=== PATIENT | female | born 1965 | race Caucasian/White ===

== ENCOUNTER 2017-08-10 14:39 | Emergency (ER) | payer OTHER ==
[2017-08-10 15:04] VITALS: BP 134/78; PULSE 73; TEMP 98.3; BMI 21.9
--- NOTE | 2017-08-10 15:06 | PDOC ---
Rapid Medical Evaluation Chief Complaint: Sore Throat Medical Evaluation: 08/10/17 15:01 The patient presents with a chief complaint of: Sore throat x2 days, subjective fevers I have performed a brief in-person evaluation of this patient; Pertinent physical exam findings: posterior oropharynx erythma, no LAD I have ordered the following: rapid strep The patient will proceed to the ED for further evaluation.
--- NOTE | 2017-08-10 16:37 | PDOC ---
History of Present Illness - General Chief Complaint: Sore Throat Stated Complaint: SORE THROAT Time Seen by Provider: 08/10/17 15:06 History Source: Patient Exam Limitations: No Limitations - History of Present Illness Initial Comments: 08/10/17 16:32 c/o sore throat hoarse voice and phlegm in back of throat for one month no fever or chills. no vomiting Past History - Past Medical History Allergies/Adverse Reactions: Allergies Allergy/AdvReac Type Severity Reaction Status Date / Time No Known Allergies Allergy Verified 08/10/17 15:04 Home Medications: Ambulatory Orders Benzocaine/Menthol [Cepacol Sore Throat Lozenge] 1 each MM QID #30 lozenge 08/10 Fluticasone Prop 0.05% Nasal [Flonase -] 1 - 2 spray NS DAILY #1 spray.pump 07/17 COPD: No HTN: Yes - Suicide/Smoking/Psychosocial Hx Smoking History: Never smoked Have you smoked in the past 12 months: No Information on smoking cessation initiated: No Hx Alcohol Use: No Drug/Substance Use Hx: No Review of Systems - Review of Systems Able to Perform ROS?: Yes Is the patient limited Panamanian proficient: No Constitutional: No: Symptoms Reported HEENTM: Yes: See HPI *Physical Exam - Vital Signs Last Vital Signs Temp Pulse Resp BP Pulse Ox 98.3 F 73 18 134/78 99 08/10/17 14:59 08/10/17 14:59 08/10/17 14:59 08/10/17 14:59 08/10/17 14:59 - Physical Exam General Appearance: Yes: Nourished, Appropriately Dressed HEENT: positive: EOMI, KARLA, Pharyngeal Erythema, Other (post nasal drip ). negative: Tonsillar Exudate, Tonsillar Erythema Neck: positive: Supple Respiratory/Chest: positive: Lungs Clear, Normal Breath Sounds Cardiovascular: positive: Regular Rhythm, Regular Rate Extremity: positive: Normal Capillary Refill, Normal Inspection Integumentary: positive: Normal Color, Warm Neurologic: positive: Fully Oriented, Normal Response, Motor Strength 5/5 ED Treatment Course - ADDITIONAL ORDERS Additional order review: 08/10/17 15:31 Group A Strep Rapid Antigen - Final Throat Medical Decision Making - Medical Decision Making 08/10/17 16:36 cc: soar throat cough phlegm in throat hoarse voice no fever will check for strep post nasal drip non toxic non verbal *DC/Admit/Observation/Transfer Diagnosis at time of Disposition: Post-nasal drip - Discharge Dispostion Disposition: HOME Condition at time of disposition: Good - Prescriptions Prescriptions: Benzocaine/Menthol [Cepacol Sore Throat Lozenge] 1 each MM QID #30 lozenge Fluticasone Prop 0.05% Nasal [Flonase -] 1 - 2 spray NS DAILY #1 spray.pump - Referrals Referrals: John Mchugh MD [Staff Physician] - - Patient Instructions Additional Instructions: drink pleanty of fluids use the flonase spray as directed cepacol lozengers gargle with warm salt water 4-5 times a day to help with hoarse voice follow with the ENT doctor for follow up if symptoms worsen or do not improve - Post Discharge Activity
== END 2017-08-10 16:46 | disposition home or self-care (01) ==
LOC: JERFT 14:39
DX: R09.82 Postnasal drip (principal); I10 Essential (primary) hypertension
CPT/HCPCS: 87070; 87430; 99281-25